=== PATIENT | female | born 1950 ===

== ENCOUNTER 2018-07-20 21:12 | Inpatient (IN) | payer MEDICARE, BC ==
[~2018-07-20] VITALS: Ht 162.6 cm; Wt 80.9 kg
[2018-07-20] MEDS ORDERED: PANT40TA4 PO (21:41)
[2018-07-20] MEDS ORDERED: POTA20PA40 PO (21:41)
[2018-07-20] MEDS ORDERED: CYAN10009 PO (21:41)
[2018-07-20] MEDS ORDERED: HYDROCORTISONE PO ×2 (21:41)
[2018-07-20] MEDS ORDERED: MAGN133T PO (21:41)
[2018-07-20] MEDS ORDERED: FOLI1TAB16 PO (21:41)
[2018-07-20] MEDS ORDERED: ESCI10TA PO (21:41)
[2018-07-20] MEDS ORDERED: SIRO0.5T3 PO (21:41)
[2018-07-20] MEDS ORDERED: OXYC5CAP18 PO (21:41)
[2018-07-20] MEDS ORDERED: ZOLP5TAB2 PO (21:41)
[2018-07-20] MEDS ORDERED: AMLO10TA7 PO (21:41)
[2018-07-20] MEDS ORDERED: POLY17PO4 PO (21:41)
[2018-07-20] MEDS ORDERED: DOCU100C36 PO (21:41)
[2018-07-20] MEDS ORDERED: BUDE3CAP15 PO (21:41)
[2018-07-20] MEDS ORDERED: SENN-168 PO (21:41)
[2018-07-20] MEDS ORDERED: SODI650T PO (21:41)
[2018-07-20] MEDS ORDERED: THIA100T13 PO (21:41)
[2018-07-20] MEDS ORDERED: LEUC5TAB PO (21:41)
[2018-07-20] MEDS ORDERED: METO50TA16 PO (21:41)
[2018-07-20] MEDS ORDERED: POSA100T PO (21:41)
[2018-07-20] MEDS ORDERED: MIRT15TA7 PO (21:41)
[2018-07-20 21:47] LABS: BASOPHILS # (AUTO) 0.1 K/uL (0.0-8.0); BASOPHILS % (AUTO) 0.9 % (0.0-2.0); EOSINOPHILS % (AUTO) 0.1 % (0.0-7.0); HEMATOCRIT 24.5 % (31.2-41.9); HEMOGLOBIN 8.4 g/dL (10.9-14.3); LYMPHOCYTES # (AUTO) 0.9 K/uL (20.0-40.0); LYMPHOCYTES % (AUTO) 16.4 % (20.5-51.5); MEAN CORPUSCULAR HEMOGLOBIN 34.3 uug (24.7-32.8); MEAN CORPUSCULAR HGB CONC 34 g/dL (32.3-35.6); MEAN CORPUSCULAR VOLUME 100.2 fL (75.5-95.3); MONOCYTES # (AUTO) 0.3 K/uL (2.0-10.0); MONOCYTES % (AUTO) 4.9 % (0.0-11.0); NEUTROPHILS # (AUTO) 4.5 K/uL (1.8-8.9); NEUTROPHILS % (AUTO) 77.7 % (38.5-71.5); PLATELET COUNT (AUTO) 50 K/uL (179-408); WHITE BLOOD COUNT (AUTO) 5.8 K/uL (3.8-11.8)
[2018-07-20 21:57] LABS: BILIRUBIN,DIRECT 0.2 mg/dL (0.0-0.2); BILIRUBIN,TOTAL 0.5 mg/dL (0.2-1.0); CREATININE 0.9 mg/dL (0.6-1.3); TOTAL PROTEIN, SERUM 5.3 g/dL (6.4-8.2)
[2018-07-20 21:58] LABS: POTASSIUM 2.6 mmol/L (3.5-5.1)
[2018-07-20 22:03] LABS: BAND % (MANUAL) 2 % (0-10); LYMPHOCYTES % (MANUAL) 16 % (20-40); MONOCYTES % (MANUAL) 2 % (2-10); NEUTROPHILS % (MANUAL) 80 % (42-75); RED BLOOD CELL COUNT(AUTO) 2.45 MIL/uL (3.63-4.92)
[2018-07-20] MEDS: POTASSIUM CHLORIDE 50 ML IV SCH ×2 (22:15→23:20)
[2018-07-20] MEDS ORDERED: POTASSIUM CHLORIDE 100 ML ONE (22:21)
[2018-07-20 23:15] LABS: *BILIRUBIN,URIN NEGATIVE (NEGATIVE); *BLOOD, URINE 2+ (NEGATIVE); *COLOR,URINE YELLOW (YELLOW); *KETONES,URINE NEGATIVE (NEGATIVE); *UROBILINOGEN,URINE 0.2 E.U./dl (NORMAL); LEUKOCYTE ESTERASE ,URINE TRACE (NEGATIVE); NITRITE, URINE NEGATIVE (NEGATIVE); UGLUCOSE NEGATIVE (NEGATIVE)
[2018-07-20 23:27] LABS: *CLARITY,URINE HAZY (CLEAR)
[2018-07-20 23:31] LABS: BACTERIA,URINE FEW /HPF (NONE SEEN)
[2018-07-20 23:32] LABS: MUCUS,URINE FEW /LPF (0-FEW); SQUAMOUS EPITHELIAL CELL,UR MANY /HPF (NONE SEEN)
[2018-07-21 00:01] VITALS: BP 143/79
[2018-07-21] MEDS ORDERED: MORPHINE SULFATE 4 MG/1 ML DISP.SYRIN IV PRN (00:45)
[2018-07-21] MEDS ORDERED: ONDANSETRON 4 MG/2 ML VIAL IV PRN (00:45)
[2018-07-21 04:00] VITALS: BP 135/83
[2018-07-21 06:00] LABS: EOSINOPHILS % (AUTO) 0.6 % (0.0-7.0); HEMATOCRIT 23.2 % (31.2-41.9); LYMPHOCYTES # (AUTO) 0.8 K/uL (20.0-40.0); LYMPHOCYTES % (AUTO) 17.3 % (20.5-51.5); MEAN CORPUSCULAR HEMOGLOBIN 34.4 uug (24.7-32.8); MEAN CORPUSCULAR HGB CONC 34 g/dL (32.3-35.6); MEAN CORPUSCULAR VOLUME 100.2 fL (75.5-95.3); MONOCYTES # (AUTO) 0.3 K/uL (2.0-10.0); MONOCYTES % (AUTO) 7.9 % (0.0-11.0); NEUTROPHILS # (AUTO) 3.2 K/uL (1.8-8.9); NEUTROPHILS % (AUTO) 73.2 % (38.5-71.5); WHITE BLOOD COUNT (AUTO) 4.4 K/uL (3.8-11.8)
[2018-07-21 06:01] LABS: RED BLOOD CELL COUNT(AUTO) 2.32 MIL/uL (3.63-4.92)
[2018-07-21 06:04] LABS: PLATELET COUNT (AUTO) 40 K/uL (179-408)
[2018-07-21 06:11] LABS: BILIRUBIN,TOTAL 0.6 mg/dL (0.2-1.0); CREATININE 0.7 mg/dL (0.6-1.3); MAGNESIUM 1.4 mg/dL (1.8-2.4); PHOSPHOROUS 2.6 mg/dL (2.5-4.9); TOTAL PROTEIN, SERUM 5.2 g/dL (6.4-8.2)
[2018-07-21 06:18] LABS: POTASSIUM 2.4 mmol/L (3.5-5.1)
[2018-07-21] MEDS: PANTOPRAZOLE SODIUM 40 MG TABLET.DR PO SCH (06:22)
[2018-07-21] MEDS: MAGNESIUM SULFATE/D5W 100 ML IV SCH ×4 (06:48→16:50)
[2018-07-21 07:32] LABS: LYMPHOCYTES % (MANUAL) 19 % (20-40); MONOCYTES % (MANUAL) 8 % (2-10); NEUTROPHILS % (MANUAL) 73 % (42-75)
[2018-07-21 09:00] VITALS: BP 132/80
[2018-07-21] MEDS: POTASSIUM CHLORIDE 10 MEQ/50 ML IV SCH ×4 (09:49→18:22)
[2018-07-21] MEDS ORDERED: LEUCOVORIN CALCIUM 5 MG PO SCH (11:45)
[2018-07-21] MEDS ORDERED: MIRALAX 17 GM POWD.PACK PO PRN (11:45)
[2018-07-21] MEDS ORDERED: POSACONAZOLE 100 MG PO SCH (11:45)
[2018-07-21] MEDS ORDERED: HYDROCORTISONE 25 MG PO SCH (11:45)
[2018-07-21] MEDS ORDERED: SIROLIMUS 0.5 MG PO SCH (11:45)
[2018-07-21] MEDS ORDERED: SENNOSIDES 1 TABLET PO PRN (11:45)
[2018-07-21] MEDS ORDERED: POTASSIUM CHLORIDE 20 MEQ TAB.PRT.SR PO ONE (12:00)
[2018-07-21] MEDS: CEFTRIAXONE 1 G in IV DEXTROSE 5% 50 ML IV SCH (12:36)
[2018-07-21] MEDS: FOLIC ACID 1 MG TABLET PO SCH (12:53)
[2018-07-21] MEDS: ESCITALOPRAM OXALATE 10 MG TABLET PO SCH (12:53)
[2018-07-21] MEDS: THIAMINE HCL 100 MG TABLET PO SCH (12:54)
[2018-07-21] MEDS: SODIUM BICARBONATE 650 MG TABLET PO SCH ×2 (13:10→17:00)
[2018-07-21 13:25] LABS: THYROID STIMULATING HORMONE 2.708 mIU/mL (0.358-3.740)
[2018-07-21 16:30] VITALS: BP 142/87
[2018-07-21 16:43] VITALS: BP 84/46
[2018-07-21] MEDS: DOCUSATE SODIUM 100 MG CAPSULE PO SCH (17:00)
[2018-07-21 20:00] VITALS: BP 146/85
[2018-07-21] MEDS: MIRTAZAPINE 15 MG TABLET PO SCH (20:41)
[2018-07-21] MEDS ORDERED: HYDROCORTISONE 10 MG TABLET PO SCH (21:00)
[2018-07-21] MEDS: ACETAMINOPHEN 325 MG TABLET PO PRN (22:26)
[2018-07-22] VITALS (12 sets, daily range): BP systolic 107–148; BP diastolic 52–88
[2018-07-22] MEDS ORDERED: DILTIAZEM HCL 25 MG IV IV ONE ×2 (03:30→05:15)
[2018-07-22 06:32] LABS: BILIRUBIN,TOTAL 0.8 mg/dL (0.2-1.0); CREATININE 0.7 mg/dL (0.6-1.3); MAGNESIUM 2.1 mg/dL (1.8-2.4); PHOSPHOROUS 2.6 mg/dL (2.5-4.9); POTASSIUM 3.3 mmol/L (3.5-5.1); TOTAL PROTEIN, SERUM 4.8 g/dL (6.4-8.2)
[2018-07-22 06:35] LABS: BASOPHILS % (AUTO) 0.7 % (0.0-2.0); EOSINOPHILS % (AUTO) 0.2 % (0.0-7.0); LYMPHOCYTES # (AUTO) 0.6 K/uL (20.0-40.0); LYMPHOCYTES % (AUTO) 13.2 % (20.5-51.5); MEAN CORPUSCULAR HEMOGLOBIN 34.3 uug (24.7-32.8); MEAN CORPUSCULAR HGB CONC 34 g/dL (32.3-35.6); MEAN CORPUSCULAR VOLUME 100.9 fL (75.5-95.3); MONOCYTES # (AUTO) 0.3 K/uL (2.0-10.0); MONOCYTES % (AUTO) 6.1 % (0.0-11.0); NEUTROPHILS # (AUTO) 3.6 K/uL (1.8-8.9); NEUTROPHILS % (AUTO) 79.8 % (38.5-71.5); WHITE BLOOD COUNT (AUTO) 4.5 K/uL (3.8-11.8)
[2018-07-22 06:40] LABS: RED BLOOD CELL COUNT(AUTO) 2.16 MIL/uL (3.63-4.92)
[2018-07-22] MEDS: PANTOPRAZOLE SODIUM 40 MG TABLET.DR PO SCH (06:42)
[2018-07-22 06:47] LABS: HEMATOCRIT 21.8 % (31.2-41.9); HEMOGLOBIN 7.4 g/dL (10.9-14.3)
[2018-07-22 06:48] LABS: PLATELET COUNT (AUTO) 32 K/uL (179-408)
[2018-07-22 08:24] LABS: BAND % (MANUAL) 7 % (0-10); LYMPHOCYTES % (MANUAL) 11 % (20-40); METAMYELOCYTES % 1 % (0-1); MONOCYTES % (MANUAL) 6 % (2-10); NEUTROPHILS % (MANUAL) 75 % (42-75)
[2018-07-22] MEDS: POTASSIUM CHLORIDE 20 MEQ POWDER PACKET PO SCH (08:30)
[2018-07-22] MEDS: SODIUM BICARBONATE 650 MG TABLET PO SCH ×3 (08:30→16:30)
[2018-07-22] MEDS: CYANOCOBALAMIN 1,000 MCG TABLET PO SCH (08:31)
[2018-07-22] MEDS: DOCUSATE SODIUM 100 MG CAPSULE PO SCH ×2 (08:31→16:30)
[2018-07-22] MEDS: FOLIC ACID 1 MG TABLET PO SCH (08:31)
[2018-07-22] MEDS: THIAMINE HCL 100 MG TABLET PO SCH (08:32)
[2018-07-22] MEDS: ESCITALOPRAM OXALATE 10 MG TABLET PO SCH (08:32)
[2018-07-22] MEDS ORDERED: HYDROCORTISONE PO SCH (09:00)
[2018-07-22] MEDS ORDERED: HYDROCORTISONE 10 MG TABLET PO SCH (09:00)
[2018-07-22] MEDS ORDERED: POTASSIUM CHLORIDE 20 MEQ TAB.PRT.SR PO ONE (10:45)
[2018-07-22] MEDS: BUDESONIDE 3 MG PO SCH (11:43)
[2018-07-22] MEDS: PROTEIN SUPPLEMENT (PROSTAT) 30 ML LIQUID PO SCH ×2 (11:43→16:31)
[2018-07-22] MEDS: CEFTRIAXONE 1 G in IV DEXTROSE 5% 50 ML IV SCH (11:44)
[2018-07-22] MEDS: CHLORHEXIDINE GLUCONATE 15 ML MOUTHWASH MM SCH ×2 (14:38→20:23)
[2018-07-22] MEDS: METOPROLOL TARTRATE 50 MG TABLET PO SCH ×2 (16:30→23:14)
[2018-07-22] MEDS: ENSURE CLEAR 240 ML LIQUID (MIX BERRY) PO SCH (16:31)
[2018-07-22] MEDS: MIRTAZAPINE 15 MG TABLET PO SCH (20:24)
[2018-07-22] MEDS: MUPIROCIN 2% OINT 22 GM TUBE NS SCH (20:24)
[2018-07-22] MEDS: ZOLPIDEM 5 MG TABLET PO PRN (21:05)
[2018-07-23] VITALS (14 sets, daily range): BP systolic 115–193; BP diastolic 61–92
[2018-07-23] MEDS: PANTOPRAZOLE SODIUM 40 MG TABLET.DR PO SCH (06:31)
[2018-07-23] MEDS: CLONIDINE HCL 0.1 MG TABLET PO PRN (06:43)
[2018-07-23 06:47] LABS: BILIRUBIN,TOTAL 0.6 mg/dL (0.2-1.0); CREATININE 0.6 mg/dL (0.6-1.3); MAGNESIUM 2.2 mg/dL (1.8-2.4); PHOSPHOROUS 2.6 mg/dL (2.5-4.9); POTASSIUM 3.6 mmol/L (3.5-5.1); TOTAL PROTEIN, SERUM 4.9 g/dL (6.4-8.2)
[2018-07-23 07:01] LABS: EOSINOPHILS % (AUTO) 0.4 % (0.0-7.0); HEMATOCRIT 25.9 % (31.2-41.9); HEMOGLOBIN 8.8 g/dL (10.9-14.3); LYMPHOCYTES # (AUTO) 0.7 K/uL (20.0-40.0); MEAN CORPUSCULAR VOLUME 95.8 fL (75.5-95.3); MONOCYTES # (AUTO) 0.3 K/uL (2.0-10.0); MONOCYTES % (AUTO) 7.3 % (0.0-11.0)
[2018-07-23 07:03] LABS: BASOPHILS % (AUTO) 0.4 % (0.0-2.0); LYMPHOCYTES % (AUTO) 15.9 % (20.5-51.5); MEAN CORPUSCULAR HEMOGLOBIN 32.7 uug (24.7-32.8); MEAN CORPUSCULAR HGB CONC 34 g/dL (32.3-35.6); NEUTROPHILS # (AUTO) 3.2 K/uL (1.8-8.9); WHITE BLOOD COUNT (AUTO) 4.2 K/uL (3.8-11.8)
[2018-07-23 07:14] LABS: PLATELET COUNT (AUTO) 33 K/uL (179-408)
[2018-07-23 07:33] LABS: BAND % (MANUAL) 6 % (0-10); LYMPHOCYTES % (MANUAL) 15 % (20-40); MONOCYTES % (MANUAL) 6 % (2-10); NEUTROPHILS % (MANUAL) 73 % (42-75)
[2018-07-23] MEDS ORDERED: SWABABLE VALVE TRANSFER SET EA MC ONE (07:34)
[2018-07-23] MEDS ORDERED: IOHEXOL 350 100 ML INFUS..BTL ONE (07:34)
[2018-07-23] MEDS ORDERED: IV NORMAL SALINE 250 ML IV ONE (07:34)
[2018-07-23] MEDS: ENSURE CLEAR 240 ML LIQUID (MIX BERRY) PO SCH ×2 (08:24→16:55)
[2018-07-23] MEDS: PROTEIN SUPPLEMENT (PROSTAT) 30 ML LIQUID PO SCH ×3 (08:25→16:54)
[2018-07-23] MEDS: CHLORHEXIDINE GLUCONATE 15 ML MOUTHWASH MM SCH ×2 (08:25→20:09)
[2018-07-23] MEDS: MUPIROCIN 2% OINT 22 GM TUBE NS SCH ×2 (08:26→20:10)
[2018-07-23] MEDS: CYANOCOBALAMIN 1,000 MCG TABLET PO SCH (08:26)
[2018-07-23] MEDS: THIAMINE HCL 100 MG TABLET PO SCH (08:27)
[2018-07-23] MEDS: ESCITALOPRAM OXALATE 10 MG TABLET PO SCH (08:27)
[2018-07-23] MEDS: POTASSIUM CHLORIDE 20 MEQ POWDER PACKET PO SCH (08:27)
[2018-07-23] MEDS: DOCUSATE SODIUM 100 MG CAPSULE PO SCH ×2 (08:27→16:53)
[2018-07-23] MEDS: METOPROLOL TARTRATE 50 MG TABLET PO SCH ×2 (08:29→20:09)
[2018-07-23] MEDS: FOLIC ACID 1 MG TABLET PO SCH (08:29)
[2018-07-23] MEDS: SODIUM BICARBONATE 650 MG TABLET PO SCH ×3 (08:30→16:53)
[2018-07-23] MEDS: HYDROCORTISONE 10 MG TABLET PO SCH (08:33)
[2018-07-23] MEDS: BUDESONIDE 3 MG PO SCH (08:34)
[2018-07-23] MEDS: DOCOSANOL 2 GM CREAM TP SCH ×4 (10:27→20:11)
[2018-07-23] MEDS: hydrALAZINE HCL 20 MG/1 ML VIAL IV PRN (11:11)
[2018-07-23] MEDS: CEFTRIAXONE 1 G in IV DEXTROSE 5% 50 ML IV SCH (12:47)
[2018-07-23] MEDS ORDERED: Z GUARD REMEDY PASTE 57 GM TUBE TOP PRN (14:15)
[2018-07-23] MEDS: ATORVASTATIN 20 MG TABLET PO SCH (20:08)
[2018-07-23] MEDS: MIRTAZAPINE 15 MG TABLET PO SCH (20:08)
[2018-07-23] MEDS: VALACYCLOVIR HCL 500 MG TABLET PO SCH (20:09)
[2018-07-23] MEDS: Z GUARD REMEDY PASTE 57 GM TUBE TOP SCH (20:12)
[2018-07-23 22:16] LABS: *OCCULT BLOOD STOOL NEGATIVE (NEGATIVE)
[2018-07-24] VITALS (7 sets, daily range): BP systolic 123–159; BP diastolic 60–88
[2018-07-24] MEDS: CLONIDINE HCL 0.1 MG TABLET PO PRN (05:39)
[2018-07-24] MEDS: DOCOSANOL 2 GM CREAM TP SCH ×5 (05:41→20:30)
[2018-07-24] MEDS: PANTOPRAZOLE SODIUM 40 MG TABLET.DR PO SCH (06:08)
[2018-07-24 07:03] LABS: BASOPHILS % (AUTO) 0.6 % (0.0-2.0); EOSINOPHILS % (AUTO) 0.9 % (0.0-7.0); HEMOGLOBIN 9.2 g/dL (10.9-14.3); LYMPHOCYTES # (AUTO) 0.5 K/uL (20.0-40.0); LYMPHOCYTES % (AUTO) 11.5 % (20.5-51.5); MEAN CORPUSCULAR HEMOGLOBIN 32.8 uug (24.7-32.8); MEAN CORPUSCULAR HGB CONC 34 g/dL (32.3-35.6); MEAN CORPUSCULAR VOLUME 95.9 fL (75.5-95.3); MONOCYTES # (AUTO) 0.3 K/uL (2.0-10.0); MONOCYTES % (AUTO) 6.9 % (0.0-11.0); NEUTROPHILS # (AUTO) 3.5 K/uL (1.8-8.9); NEUTROPHILS % (AUTO) 80.1 % (38.5-71.5); PLATELET COUNT (AUTO) 75 K/uL (179-408); RED BLOOD CELL COUNT(AUTO) 2.82 MIL/uL (3.63-4.92); WHITE BLOOD COUNT (AUTO) 4.4 K/uL (3.8-11.8)
[2018-07-24 07:19] LABS: BILIRUBIN,TOTAL 0.5 mg/dL (0.2-1.0); CREATININE 0.5 mg/dL (0.6-1.3); MAGNESIUM 1.9 mg/dL (1.8-2.4); PHOSPHOROUS 3.7 mg/dL (2.5-4.9); POTASSIUM 3.5 mmol/L (3.5-5.1); TOTAL PROTEIN, SERUM 4.7 g/dL (6.4-8.2)
[2018-07-24] MEDS: SODIUM BICARBONATE 650 MG TABLET PO SCH ×3 (09:24→16:42)
[2018-07-24] MEDS: VALACYCLOVIR HCL 500 MG TABLET PO SCH (09:24)
[2018-07-24] MEDS: HYDROCORTISONE 10 MG TABLET PO SCH (09:24)
[2018-07-24] MEDS: FOLIC ACID 1 MG TABLET PO SCH (09:24)
[2018-07-24] MEDS: DOCUSATE SODIUM 100 MG CAPSULE PO SCH ×2 (09:25→16:41)
[2018-07-24] MEDS: METOPROLOL TARTRATE 50 MG TABLET PO SCH ×2 (09:25→20:29)
[2018-07-24] MEDS: CYANOCOBALAMIN 1,000 MCG TABLET PO SCH (09:25)
[2018-07-24] MEDS: POTASSIUM CHLORIDE 20 MEQ TAB.PRT.SR PO SCH (09:25)
[2018-07-24] MEDS: THIAMINE HCL 100 MG TABLET PO SCH (09:25)
[2018-07-24] MEDS: ESCITALOPRAM OXALATE 10 MG TABLET PO SCH (09:25)
[2018-07-24] MEDS: Z GUARD REMEDY PASTE 57 GM TUBE TOP SCH ×2 (09:26→20:32)
[2018-07-24 09:32] LABS: LYMPHOCYTES % (MANUAL) 12 % (20-40); MONOCYTES % (MANUAL) 8 % (2-10); NEUTROPHILS % (MANUAL) 80 % (42-75)
[2018-07-24] MEDS: ENSURE CLEAR 240 ML LIQUID (MIX BERRY) PO SCH ×2 (09:33→16:41)
[2018-07-24] MEDS: PROTEIN SUPPLEMENT (PROSTAT) 30 ML LIQUID PO SCH ×3 (09:33→16:41)
[2018-07-24] MEDS: MUPIROCIN 2% OINT 22 GM TUBE NS SCH ×2 (09:35→20:29)
[2018-07-24] MEDS: CHLORHEXIDINE GLUCONATE 15 ML MOUTHWASH MM SCH ×2 (09:35→20:29)
[2018-07-24] MEDS: BUDESONIDE 3 MG PO SCH (09:36)
[2018-07-24] MEDS: ACETAMINOPHEN 325 MG TABLET PO PRN (11:18)
[2018-07-24] MEDS: CEFTRIAXONE 1 G in IV DEXTROSE 5% 50 ML IV SCH (13:32)
[2018-07-24] MEDS: MIRTAZAPINE 15 MG TABLET PO SCH (20:28)
[2018-07-24] MEDS: ATORVASTATIN 20 MG TABLET PO SCH (20:28)
[2018-07-25 03:25] VITALS: BP 160/96
[2018-07-25] MEDS: CLONIDINE HCL 0.1 MG TABLET PO PRN ×2 (04:33→16:39)
[2018-07-25] MEDS: DOCOSANOL 2 GM CREAM TP SCH ×5 (06:00→20:28)
[2018-07-25] MEDS: ACETAMINOPHEN 325 MG TABLET PO PRN (06:01)
[2018-07-25] MEDS: PANTOPRAZOLE SODIUM 40 MG TABLET.DR PO SCH (06:01)
[2018-07-25] MEDS: hydrALAZINE HCL 20 MG/1 ML VIAL IV PRN (06:22)
[2018-07-25 06:44] LABS: BASOPHILS # (AUTO) 0.1 K/uL (0.0-8.0); BASOPHILS % (AUTO) 1.1 % (0.0-2.0); EOSINOPHILS % (AUTO) 0.7 % (0.0-7.0); HEMATOCRIT 30.5 % (31.2-41.9); HEMOGLOBIN 10.4 g/dL (10.9-14.3); LYMPHOCYTES # (AUTO) 0.5 K/uL (20.0-40.0); LYMPHOCYTES % (AUTO) 9.7 % (20.5-51.5); MEAN CORPUSCULAR HEMOGLOBIN 32.8 uug (24.7-32.8); MEAN CORPUSCULAR HGB CONC 34 g/dL (32.3-35.6); MEAN CORPUSCULAR VOLUME 96.1 fL (75.5-95.3); MONOCYTES # (AUTO) 0.3 K/uL (2.0-10.0); NEUTROPHILS # (AUTO) 4.2 K/uL (1.8-8.9); NEUTROPHILS % (AUTO) 82.5 % (38.5-71.5); PLATELET COUNT (AUTO) 69 K/uL (179-408); RED BLOOD CELL COUNT(AUTO) 3.18 MIL/uL (3.63-4.92)
[2018-07-25 06:48] LABS: CREATININE 0.6 mg/dL (0.6-1.3); POTASSIUM 3.4 mmol/L (3.5-5.1)
[2018-07-25 07:30] LABS: FERRITIN 3778 ng/mL (8-252)
[2018-07-25 07:53] LABS: IRON, SERUM 44 ug/dL (50-175)
[2018-07-25] MEDS: HYDROCORTISONE 10 MG TABLET PO SCH (08:03)
[2018-07-25] MEDS: DOCUSATE SODIUM 100 MG CAPSULE PO SCH ×2 (08:03→16:39)
[2018-07-25] MEDS: CHLORHEXIDINE GLUCONATE 15 ML MOUTHWASH MM SCH ×2 (08:03→20:27)
[2018-07-25] MEDS: SODIUM BICARBONATE 650 MG TABLET PO SCH ×3 (08:03→16:41)
[2018-07-25] MEDS: FOLIC ACID 1 MG TABLET PO SCH (08:03)
[2018-07-25] MEDS: METOPROLOL TARTRATE 50 MG TABLET PO SCH ×2 (08:03→20:28)
[2018-07-25] MEDS: BUDESONIDE 3 MG PO SCH (08:03)
[2018-07-25] MEDS: POTASSIUM CHLORIDE 20 MEQ TAB.PRT.SR PO SCH (08:03)
[2018-07-25] MEDS: Z GUARD REMEDY PASTE 57 GM TUBE TOP SCH ×2 (08:04→20:36)
[2018-07-25] MEDS: CYANOCOBALAMIN 1,000 MCG TABLET PO SCH (08:04)
[2018-07-25] MEDS: ESCITALOPRAM OXALATE 10 MG TABLET PO SCH (08:04)
[2018-07-25] MEDS: THIAMINE HCL 100 MG TABLET PO SCH (08:04)
[2018-07-25] MEDS: MUPIROCIN 2% OINT 22 GM TUBE NS SCH ×2 (08:04→20:28)
[2018-07-25] MEDS: PROTEIN SUPPLEMENT (PROSTAT) 30 ML LIQUID PO SCH ×3 (08:05→16:39)
[2018-07-25] MEDS: ENSURE CLEAR 240 ML LIQUID (MIX BERRY) PO SCH ×2 (08:05→16:40)
[2018-07-25 11:01] VITALS: BP 157/70
[2018-07-25] MEDS ORDERED: POTASSIUM CHLORIDE 20 MEQ TAB.PRT.SR PO ONE (14:45)
[2018-07-25 16:27] VITALS: BP 169/88
[2018-07-25 17:50] LABS: *BILIRUBIN,URIN 1+ (NEGATIVE); *BLOOD, URINE Trace-lysed (NEGATIVE); *COLOR,URINE AMBER (YELLOW); *KETONES,URINE TRACE (NEGATIVE); LEUKOCYTE ESTERASE ,URINE NEGATIVE (NEGATIVE); NITRITE, URINE NEGATIVE (NEGATIVE); PH,URINE 7.5 (5.0-8.0); UGLUCOSE NEGATIVE (NEGATIVE)
[2018-07-25 18:11] LABS: *CLARITY,URINE CLOUDY (CLEAR)
[2018-07-25 18:12] LABS: BACTERIA,URINE MANY /HPF (NONE SEEN)
[2018-07-25 18:13] LABS: MUCUS,URINE MODERATE /LPF (0-FEW); SQUAMOUS EPITHELIAL CELL,UR MODERATE /HPF (NONE SEEN); TRANSITIONAL EPI CELLS,URINE MODERATE /LPF (NONE SEEN)
[2018-07-25 19:28] VITALS: BP 134/80
[2018-07-25] MEDS: MIRTAZAPINE 15 MG TABLET PO SCH (20:27)
[2018-07-25] MEDS: ATORVASTATIN 20 MG TABLET PO SCH (20:27)
[2018-07-25] MEDS: ZOLPIDEM 5 MG TABLET PO PRN (20:34)
[2018-07-26 03:43] VITALS: BP 149/75
[2018-07-26] MEDS: DOCOSANOL 2 GM CREAM TP SCH ×5 (05:23→20:54)
[2018-07-26] MEDS: PANTOPRAZOLE SODIUM 40 MG TABLET.DR PO SCH (06:09)
[2018-07-26 06:44] LABS: CREATININE 0.6 mg/dL (0.6-1.3); POTASSIUM 3.5 mmol/L (3.5-5.1)
[2018-07-26 07:11] LABS: BASOPHILS % (AUTO) 0.3 % (0.0-2.0); EOSINOPHILS # (AUTO) 0.1 K/uL (0.0-0.7); EOSINOPHILS % (AUTO) 0.9 % (0.0-7.0); HEMATOCRIT 26.3 % (31.2-41.9); LYMPHOCYTES # (AUTO) 0.8 K/uL (20.0-40.0); LYMPHOCYTES % (AUTO) 13.3 % (20.5-51.5); MEAN CORPUSCULAR HEMOGLOBIN 33.2 uug (24.7-32.8); MEAN CORPUSCULAR HGB CONC 34 g/dL (32.3-35.6); MONOCYTES # (AUTO) 0.3 K/uL (2.0-10.0); MONOCYTES % (AUTO) 5.5 % (0.0-11.0); NEUTROPHILS # (AUTO) 5.1 K/uL (1.8-8.9); RED BLOOD CELL COUNT(AUTO) 2.71 MIL/uL (3.63-4.92); WHITE BLOOD COUNT (AUTO) 6.3 K/uL (3.8-11.8)
[2018-07-26 07:16] LABS: PLATELET COUNT (AUTO) 45 K/uL (179-408)
[2018-07-26 07:38] LABS: BAND % (MANUAL) 1 % (0-10); LYMPHOCYTES % (MANUAL) 7 % (20-40); MONOCYTES % (MANUAL) 6 % (2-10); NEUTROPHILS % (MANUAL) 86 % (42-75)
[2018-07-26] MEDS: ENSURE CLEAR 240 ML LIQUID (MIX BERRY) PO SCH ×2 (08:41→16:12)
[2018-07-26] MEDS: CHLORHEXIDINE GLUCONATE 15 ML MOUTHWASH MM SCH ×2 (08:41→20:49)
[2018-07-26] MEDS: PROTEIN SUPPLEMENT (PROSTAT) 30 ML LIQUID PO SCH ×3 (08:41→16:12)
[2018-07-26] MEDS: HYDROCORTISONE 10 MG TABLET PO SCH (08:43)
[2018-07-26] MEDS: DOCUSATE SODIUM 100 MG CAPSULE PO SCH ×2 (08:43→16:11)
[2018-07-26] MEDS: BUDESONIDE 3 MG PO SCH (08:43)
[2018-07-26] MEDS: FOLIC ACID 1 MG TABLET PO SCH (08:43)
[2018-07-26] MEDS: THIAMINE HCL 100 MG TABLET PO SCH (08:44)
[2018-07-26] MEDS: POTASSIUM CHLORIDE 20 MEQ TAB.PRT.SR PO SCH (08:44)
[2018-07-26] MEDS: SODIUM BICARBONATE 650 MG TABLET PO SCH ×3 (08:44→16:11)
[2018-07-26] MEDS: CYANOCOBALAMIN 1,000 MCG TABLET PO SCH (08:44)
[2018-07-26] MEDS: ESCITALOPRAM OXALATE 10 MG TABLET PO SCH (08:44)
[2018-07-26] MEDS: METOPROLOL TARTRATE 50 MG TABLET PO SCH ×2 (08:45→20:47)
[2018-07-26] MEDS: MUPIROCIN 2% OINT 22 GM TUBE NS SCH ×2 (08:53→20:49)
[2018-07-26] MEDS: Z GUARD REMEDY PASTE 57 GM TUBE TOP SCH ×2 (09:14→20:52)
[2018-07-26] MEDS ORDERED: CEFTRIAXONE 1 G in IV DEXTROSE 5% 50 ML IV SCH (11:00)
[2018-07-26 11:53] VITALS: BP 142/77
[2018-07-26] MEDS ORDERED: METO50TA16 PO (11:59)
[2018-07-26] MEDS ORDERED: POTA20TA10 PO (11:59)
[2018-07-26] MEDS ORDERED: PROT30LI PO (11:59)
[2018-07-26] MEDS ORDERED: POSACONAZOLE PO (11:59)
[2018-07-26] MEDS ORDERED: ESCI10TA PO (11:59)
[2018-07-26] MEDS ORDERED: ACET325S8 PO (11:59)
[2018-07-26] MEDS ORDERED: ACET325T53 PO (11:59)
[2018-07-26] MEDS ORDERED: HYDR10TA PO (11:59)
[2018-07-26] MEDS ORDERED: ONDA4VIA23 IV (11:59)
[2018-07-26] MEDS ORDERED: DOCO2CRE TP (11:59)
[2018-07-26] MEDS ORDERED: POLY17PO4 PO (11:59)
[2018-07-26] MEDS ORDERED: CHLO473M2 MM (11:59)
[2018-07-26] MEDS ORDERED: HYDR20VI4 IV (11:59)
[2018-07-26] MEDS ORDERED: CLON0.1T14 PO (11:59)
[2018-07-26] MEDS ORDERED: FOLI1TAB16 PO (11:59)
[2018-07-26] MEDS ORDERED: ATOR20TA PO (11:59)
[2018-07-26] MEDS ORDERED: MENT71OI TOP ×2 (11:59)
[2018-07-26] MEDS ORDERED: ZOLP5TAB8 PO (11:59)
[2018-07-26] MEDS ORDERED: Morphine Sulfate Inj IV (11:59)
[2018-07-26] MEDS ORDERED: PANT40TA2 PO (11:59)
[2018-07-26] MEDS ORDERED: BUDE3CAP15 PO (11:59)
[2018-07-26] MEDS ORDERED: THIA100T13 PO (11:59)
[2018-07-26] MEDS ORDERED: SENN-168 PO (11:59)
[2018-07-26] MEDS ORDERED: SODI650T PO (11:59)
[2018-07-26] MEDS ORDERED: DOCU100C36 PO (11:59)
[2018-07-26] MEDS ORDERED: MUPI22OI2 NS (11:59)
[2018-07-26] MEDS ORDERED: MIRT15TA7 PO (11:59)
[2018-07-26] MEDS ORDERED: CYAN10009 PO (11:59)
[2018-07-26] MEDS ORDERED: LACT296L PO (11:59)
[2018-07-26] MEDS ORDERED: SIROLIMUS PO (11:59)
[2018-07-26] MEDS: VALACYCLOVIR HCL 500 MG TABLET PO SCH ×2 (13:48→20:52)
[2018-07-26 16:06] VITALS: BP 154/84
[2018-07-26] MEDS: CLONIDINE HCL 0.1 MG TABLET PO PRN (16:11)
[2018-07-26] MEDS: ATORVASTATIN 20 MG TABLET PO SCH (20:47)
[2018-07-26] MEDS: ACETAMINOPHEN 325 MG TABLET PO PRN (20:47)
[2018-07-26] MEDS: MIRTAZAPINE 15 MG TABLET PO SCH (20:48)
[2018-07-26 21:37] VITALS: BP 134/89
[2018-07-26] MEDS: ZOLPIDEM 5 MG TABLET PO PRN (22:00)
[2018-07-27] VITALS (8 sets, daily range): BP systolic 136–170; BP diastolic 58–85
[2018-07-27] MEDS: DOCOSANOL 2 GM CREAM TP SCH ×5 (06:33→20:25)
[2018-07-27] MEDS: PANTOPRAZOLE SODIUM 40 MG TABLET.DR PO SCH (06:36)
[2018-07-27 06:59] LABS: LYMPHOCYTES # (AUTO) 0.7 K/uL (20.0-40.0); MONOCYTES # (AUTO) 0.3 K/uL (2.0-10.0); NEUTROPHILS # (AUTO) 3.2 K/uL (1.8-8.9); NEUTROPHILS % (AUTO) 76.6 % (38.5-71.5); WHITE BLOOD COUNT (AUTO) 4.2 K/uL (3.8-11.8)
[2018-07-27 07:02] LABS: BASOPHILS % (AUTO) 0.4 % (0.0-2.0); EOSINOPHILS % (AUTO) 0.8 % (0.0-7.0); HEMATOCRIT 24.7 % (31.2-41.9); HEMOGLOBIN 8.3 g/dL (10.9-14.3); LYMPHOCYTES % (AUTO) 15.7 % (20.5-51.5); MEAN CORPUSCULAR HEMOGLOBIN 32.7 uug (24.7-32.8); MEAN CORPUSCULAR HGB CONC 34 g/dL (32.3-35.6); MEAN CORPUSCULAR VOLUME 97.7 fL (75.5-95.3); MONOCYTES % (AUTO) 6.5 % (0.0-11.0); RED BLOOD CELL COUNT(AUTO) 2.53 MIL/uL (3.63-4.92)
[2018-07-27 07:13] LABS: CREATININE 0.5 mg/dL (0.6-1.3); POTASSIUM 3.5 mmol/L (3.5-5.1)
[2018-07-27 07:19] LABS: PLATELET COUNT (AUTO) 42 K/uL (179-408)
[2018-07-27 08:17] LABS: BAND % (MANUAL) 4 % (0-10); LYMPHOCYTES % (MANUAL) 14 % (20-40); MONOCYTES % (MANUAL) 4 % (2-10); NEUTROPHILS % (MANUAL) 76 % (42-75)
[2018-07-27] MEDS: DOCUSATE SODIUM 100 MG CAPSULE PO SCH ×2 (09:00→17:00)
[2018-07-27] MEDS: CHLORHEXIDINE GLUCONATE 15 ML MOUTHWASH MM SCH ×2 (09:19→20:17)
[2018-07-27] MEDS: BUDESONIDE 3 MG PO SCH (09:20)
[2018-07-27] MEDS: HYDROCORTISONE 10 MG TABLET PO SCH (09:20)
[2018-07-27] MEDS: VALACYCLOVIR HCL 500 MG TABLET PO SCH ×2 (09:20→20:17)
[2018-07-27] MEDS: FOLIC ACID 1 MG TABLET PO SCH (09:21)
[2018-07-27] MEDS: ESCITALOPRAM OXALATE 10 MG TABLET PO SCH (09:21)
[2018-07-27] MEDS: CYANOCOBALAMIN 1,000 MCG TABLET PO SCH (09:21)
[2018-07-27] MEDS: THIAMINE HCL 100 MG TABLET PO SCH (09:21)
[2018-07-27] MEDS: POTASSIUM CHLORIDE 20 MEQ TAB.PRT.SR PO SCH (09:21)
[2018-07-27] MEDS: METOPROLOL TARTRATE 50 MG TABLET PO SCH ×2 (09:22→20:19)
[2018-07-27] MEDS: MUPIROCIN 2% OINT 22 GM TUBE NS SCH (09:23)
[2018-07-27] MEDS: PROTEIN SUPPLEMENT (PROSTAT) 30 ML LIQUID PO SCH ×3 (09:23→17:00)
[2018-07-27] MEDS: LEUCOVORIN PO SCH (09:27)
[2018-07-27] MEDS: SODIUM BICARBONATE 650 MG TABLET PO SCH ×3 (09:27→17:15)
[2018-07-27] MEDS: Z GUARD REMEDY PASTE 57 GM TUBE TOP SCH ×2 (09:32→20:20)
[2018-07-27] MEDS: ENSURE CLEAR 240 ML LIQUID (MIX BERRY) PO SCH ×2 (09:41→17:00)
[2018-07-27] MEDS: MIRTAZAPINE 15 MG TABLET PO SCH (20:18)
[2018-07-27] MEDS: ATORVASTATIN 20 MG TABLET PO SCH (20:18)
[2018-07-27] MEDS: ZOLPIDEM 5 MG TABLET PO PRN (20:58)
[2018-07-28 04:55] VITALS: BP 175/92
[2018-07-28] MEDS: hydrALAZINE HCL 20 MG/1 ML VIAL IV PRN (04:56)
[2018-07-28] MEDS: PANTOPRAZOLE SODIUM 40 MG TABLET.DR PO SCH (06:09)
[2018-07-28] MEDS: DOCOSANOL 2 GM CREAM TP SCH ×5 (06:09→20:13)
[2018-07-28 07:36] LABS: CREATININE 0.5 mg/dL (0.6-1.3); POTASSIUM 3.2 mmol/L (3.5-5.1)
[2018-07-28 07:40] LABS: BASOPHILS % (AUTO) 0.9 % (0.0-2.0); EOSINOPHILS % (AUTO) 0.7 % (0.0-7.0); HEMATOCRIT 25.7 % (31.2-41.9); HEMOGLOBIN 8.6 g/dL (10.9-14.3); LYMPHOCYTES # (AUTO) 0.7 K/uL (20.0-40.0); LYMPHOCYTES % (AUTO) 15.3 % (20.5-51.5); MEAN CORPUSCULAR HEMOGLOBIN 32.6 uug (24.7-32.8); MEAN CORPUSCULAR HGB CONC 34 g/dL (32.3-35.6); MONOCYTES # (AUTO) 0.4 K/uL (2.0-10.0); MONOCYTES % (AUTO) 7.5 % (0.0-11.0); NEUTROPHILS # (AUTO) 3.6 K/uL (1.8-8.9); NEUTROPHILS % (AUTO) 75.6 % (38.5-71.5); PLATELET COUNT (AUTO) 81 K/uL (179-408); RED BLOOD CELL COUNT(AUTO) 2.65 MIL/uL (3.63-4.92); WHITE BLOOD COUNT (AUTO) 4.8 K/uL (3.8-11.8)
[2018-07-28] MEDS: ENSURE CLEAR 240 ML LIQUID (MIX BERRY) PO SCH ×2 (08:00→17:00)
[2018-07-28] MEDS ORDERED: POTASSIUM CHLORIDE 20 MEQ TAB.PRT.SR PO ONE (08:00)
[2018-07-28] MEDS: Z GUARD REMEDY PASTE 57 GM TUBE TOP SCH ×2 (09:00→20:13)
[2018-07-28] MEDS: ESCITALOPRAM OXALATE 10 MG TABLET PO SCH (09:25)
[2018-07-28] MEDS: POTASSIUM CHLORIDE 20 MEQ TAB.PRT.SR PO SCH (09:26)
[2018-07-28] MEDS: CYANOCOBALAMIN 1,000 MCG TABLET PO SCH (09:26)
[2018-07-28] MEDS: DOCUSATE SODIUM 100 MG CAPSULE PO SCH ×2 (09:26→18:32)
[2018-07-28] MEDS: THIAMINE HCL 100 MG TABLET PO SCH (09:26)
[2018-07-28] MEDS: FOLIC ACID 1 MG TABLET PO SCH (09:26)
[2018-07-28] MEDS: METOPROLOL TARTRATE 50 MG TABLET PO SCH ×2 (09:27→20:13)
[2018-07-28] MEDS: LEUCOVORIN PO SCH (09:28)
[2018-07-28] MEDS: SODIUM BICARBONATE 650 MG TABLET PO SCH ×3 (09:29→18:32)
[2018-07-28] MEDS: VALACYCLOVIR HCL 500 MG TABLET PO SCH (09:29)
[2018-07-28] MEDS: BUDESONIDE 3 MG PO SCH (09:30)
[2018-07-28] MEDS: HYDROCORTISONE 10 MG TABLET PO SCH (09:30)
[2018-07-28] MEDS: CHLORHEXIDINE GLUCONATE 15 ML MOUTHWASH MM SCH ×2 (09:31→20:13)
[2018-07-28] MEDS: PROTEIN SUPPLEMENT (PROSTAT) 30 ML LIQUID PO SCH ×3 (09:31→17:00)
[2018-07-28 10:50] LABS: BAND % (MANUAL) 12 % (0-10); LYMPHOCYTES % (MANUAL) 14 % (20-40); MONOCYTES % (MANUAL) 6 % (2-10); NEUTROPHILS % (MANUAL) 68 % (42-75)
[2018-07-28 11:15] VITALS: BP 139/78
[2018-07-28 15:36] VITALS: BP 153/81
[2018-07-28] MEDS: MIRTAZAPINE 15 MG TABLET PO SCH (20:13)
[2018-07-28] MEDS: ATORVASTATIN 20 MG TABLET PO SCH (20:13)
[2018-07-28 20:56] VITALS: BP 164/81
[2018-07-28] MEDS: ZOLPIDEM 5 MG TABLET PO PRN (21:35)
[2018-07-29 04:35] VITALS: BP 163/87
[2018-07-29] MEDS: CLONIDINE HCL 0.1 MG TABLET PO PRN (05:41)
[2018-07-29] MEDS: DOCOSANOL 2 GM CREAM TP SCH ×5 (05:43→20:11)
[2018-07-29] MEDS: PANTOPRAZOLE SODIUM 40 MG TABLET.DR PO SCH (06:00)
[2018-07-29 06:38] LABS: CREATININE 0.6 mg/dL (0.6-1.3); POTASSIUM 3.7 mmol/L (3.5-5.1)
[2018-07-29 06:47] LABS: HEMATOCRIT 23.7 % (31.2-41.9); LYMPHOCYTES # (AUTO) 0.9 K/uL (20.0-40.0); NEUTROPHILS # (AUTO) 3.6 K/uL (1.8-8.9); WHITE BLOOD COUNT (AUTO) 4.9 K/uL (3.8-11.8)
[2018-07-29 07:09] LABS: BASOPHILS % (AUTO) 0.8 % (0.0-2.0); EOSINOPHILS % (AUTO) 0.6 % (0.0-7.0); HEMOGLOBIN 7.9 g/dL (10.9-14.3); LYMPHOCYTES % (AUTO) 17.5 % (20.5-51.5); MEAN CORPUSCULAR HEMOGLOBIN 32.6 uug (24.7-32.8); MEAN CORPUSCULAR HGB CONC 33 g/dL (32.3-35.6); MEAN CORPUSCULAR VOLUME 97.5 fL (75.5-95.3); MONOCYTES # (AUTO) 0.3 K/uL (2.0-10.0); MONOCYTES % (AUTO) 7.2 % (0.0-11.0); NEUTROPHILS % (AUTO) 73.9 % (38.5-71.5)
[2018-07-29 07:27] LABS: RED BLOOD CELL COUNT(AUTO) 2.43 MIL/uL (3.63-4.92)
[2018-07-29 07:28] LABS: PLATELET COUNT (AUTO) 58 K/uL (179-408)
[2018-07-29] MEDS: ENSURE CLEAR 240 ML LIQUID (MIX BERRY) PO SCH ×2 (08:00→17:00)
[2018-07-29 08:23] LABS: EOSINOPHILS % (MANUAL) 1 % (0-8); LYMPHOCYTES % (MANUAL) 17 % (20-40); METAMYELOCYTES % 1 % (0-1); MONOCYTES % (MANUAL) 9 % (2-10); MYELOCYTES % 4 % (0-0); NEUTROPHILS % (MANUAL) 68 % (42-75)
[2018-07-29] MEDS: CYANOCOBALAMIN 1,000 MCG TABLET PO SCH (08:23)
[2018-07-29] MEDS: ESCITALOPRAM OXALATE 10 MG TABLET PO SCH (08:23)
[2018-07-29] MEDS: THIAMINE HCL 100 MG TABLET PO SCH (08:28)
[2018-07-29] MEDS: POTASSIUM CHLORIDE 20 MEQ TAB.PRT.SR PO SCH (08:28)
[2018-07-29] MEDS: FOLIC ACID 1 MG TABLET PO SCH (08:29)
[2018-07-29] MEDS: SODIUM BICARBONATE 650 MG TABLET PO SCH ×3 (08:30→16:43)
[2018-07-29] MEDS: BUDESONIDE 3 MG PO SCH (08:30)
[2018-07-29] MEDS: CHLORHEXIDINE GLUCONATE 15 ML MOUTHWASH MM SCH ×2 (08:30→20:08)
[2018-07-29] MEDS: Z GUARD REMEDY PASTE 57 GM TUBE TOP SCH ×2 (08:31→20:10)
[2018-07-29] MEDS: HYDROCORTISONE 10 MG TABLET PO SCH (08:32)
[2018-07-29] MEDS: METOPROLOL TARTRATE 50 MG TABLET PO SCH ×2 (08:33→20:09)
[2018-07-29] MEDS: DOCUSATE SODIUM 100 MG CAPSULE PO SCH ×2 (09:00→16:25)
[2018-07-29] MEDS: PROTEIN SUPPLEMENT (PROSTAT) 30 ML LIQUID PO SCH ×3 (09:16→16:29)
[2018-07-29 11:22] VITALS: BP 141/72
[2018-07-29 15:02] VITALS: BP 127/72
[2018-07-29 19:52] VITALS: BP 166/84
[2018-07-29] MEDS: ATORVASTATIN 20 MG TABLET PO SCH (20:09)
[2018-07-29] MEDS: MIRTAZAPINE 15 MG TABLET PO SCH (20:09)
[2018-07-29] MEDS: ACETAMINOPHEN 325 MG TABLET PO PRN (20:09)
[2018-07-29] MEDS: ZOLPIDEM 5 MG TABLET PO PRN (20:10)
[2018-07-30] MEDS: PANTOPRAZOLE SODIUM 40 MG TABLET.DR PO SCH (05:39)
[2018-07-30] MEDS: DOCOSANOL 2 GM CREAM TP SCH ×2 (05:40→09:07)
[2018-07-30 06:15] VITALS: BP 180/76
[2018-07-30] MEDS: ENSURE CLEAR 240 ML LIQUID (MIX BERRY) PO SCH ×2 (08:00→17:00)
[2018-07-30] MEDS: POTASSIUM CHLORIDE 20 MEQ TAB.PRT.SR PO SCH (08:23)
[2018-07-30] MEDS: THIAMINE HCL 100 MG TABLET PO SCH (08:23)
[2018-07-30] MEDS: FOLIC ACID 1 MG TABLET PO SCH (08:23)
[2018-07-30] MEDS: CYANOCOBALAMIN 1,000 MCG TABLET PO SCH (08:23)
[2018-07-30] MEDS: ESCITALOPRAM OXALATE 10 MG TABLET PO SCH (08:23)
[2018-07-30] MEDS: SODIUM BICARBONATE 650 MG TABLET PO SCH ×3 (08:24→16:24)
[2018-07-30] MEDS: CHLORHEXIDINE GLUCONATE 15 ML MOUTHWASH MM SCH ×2 (08:25→20:02)
[2018-07-30] MEDS: HYDROCORTISONE 10 MG TABLET PO SCH (08:25)
[2018-07-30] MEDS: METOPROLOL TARTRATE 50 MG TABLET PO SCH ×2 (08:26→20:01)
[2018-07-30] MEDS: Z GUARD REMEDY PASTE 57 GM TUBE TOP SCH ×2 (08:31→20:04)
[2018-07-30] MEDS: DOCUSATE SODIUM 100 MG CAPSULE PO SCH ×2 (08:45→17:00)
[2018-07-30] MEDS: PROTEIN SUPPLEMENT (PROSTAT) 30 ML LIQUID PO SCH ×3 (09:05→17:00)
[2018-07-30] MEDS: BUDESONIDE 3 MG PO SCH (09:05)
[2018-07-30 11:19] VITALS: BP 150/72
[2018-07-30 11:56] LABS: BILIRUBIN,DIRECT 0.7 mg/dL (0.0-0.2); BILIRUBIN,TOTAL 1.1 mg/dL (0.2-1.0); TOTAL PROTEIN, SERUM 4.7 g/dL (6.4-8.2)
[2018-07-30 15:14] VITALS: BP 140/80
[2018-07-30] MEDS: ATORVASTATIN 20 MG TABLET PO SCH (20:01)
[2018-07-30] MEDS: MIRTAZAPINE 15 MG TABLET PO SCH (20:01)
[2018-07-30] MEDS ORDERED: CLONIDINE-TTS 1 PATCH TD SCH (20:15)
[2018-07-30 20:18] VITALS: BP 173/65
[2018-07-30] MEDS: ZOLPIDEM 5 MG TABLET PO PRN (21:23)
[2018-07-31] MEDS: CLONIDINE HCL 0.1 MG TABLET PO PRN (05:42)
[2018-07-31] MEDS: PANTOPRAZOLE SODIUM 40 MG TABLET.DR PO SCH (06:02)
[2018-07-31 06:10] VITALS: BP 162/65
[2018-07-31 06:46] LABS: HEMOGLOBIN 7.9 g/dL (10.9-14.3); NEUTROPHILS # (AUTO) 4.4 K/uL (1.8-8.9)
[2018-07-31 06:51] LABS: BASOPHILS % (AUTO) 0.4 % (0.0-2.0); EOSINOPHILS % (AUTO) 0.4 % (0.0-7.0); HEMATOCRIT 23.4 % (31.2-41.9); LYMPHOCYTES # (AUTO) 0.8 K/uL (20.0-40.0); LYMPHOCYTES % (AUTO) 14.2 % (20.5-51.5); MEAN CORPUSCULAR HEMOGLOBIN 33.1 uug (24.7-32.8); MEAN CORPUSCULAR HGB CONC 34 g/dL (32.3-35.6); MONOCYTES # (AUTO) 0.4 K/uL (2.0-10.0); MONOCYTES % (AUTO) 6.7 % (0.0-11.0); NEUTROPHILS % (AUTO) 78.3 % (38.5-71.5); PLATELET COUNT (AUTO) 50 K/uL (179-408); WHITE BLOOD COUNT (AUTO) 5.7 K/uL (3.8-11.8)
[2018-07-31 06:56] LABS: RED BLOOD CELL COUNT(AUTO) 2.38 MIL/uL (3.63-4.92)
[2018-07-31 07:11] LABS: BILIRUBIN,TOTAL 0.8 mg/dL (0.2-1.0); CREATININE 0.5 mg/dL (0.6-1.3); MAGNESIUM 1.4 mg/dL (1.8-2.4); PHOSPHOROUS 3.1 mg/dL (2.5-4.9)
[2018-07-31] MEDS: POTASSIUM CHLORIDE 20 MEQ TAB.PRT.SR PO SCH (08:16)
[2018-07-31] MEDS: DOCUSATE SODIUM 100 MG CAPSULE PO SCH ×2 (08:16→16:04)
[2018-07-31] MEDS: FOLIC ACID 1 MG TABLET PO SCH (08:16)
[2018-07-31] MEDS: ESCITALOPRAM OXALATE 10 MG TABLET PO SCH (08:16)
[2018-07-31] MEDS: THIAMINE HCL 100 MG TABLET PO SCH (08:16)
[2018-07-31] MEDS: CYANOCOBALAMIN 1,000 MCG TABLET PO SCH (08:16)
[2018-07-31] MEDS: CHLORHEXIDINE GLUCONATE 15 ML MOUTHWASH MM SCH ×2 (08:16→20:54)
[2018-07-31] MEDS: SODIUM BICARBONATE 650 MG TABLET PO SCH ×3 (08:17→16:03)
[2018-07-31] MEDS: HYDROCORTISONE 10 MG TABLET PO SCH (08:17)
[2018-07-31] MEDS: BUDESONIDE 3 MG PO SCH (08:17)
[2018-07-31] MEDS: Z GUARD REMEDY PASTE 57 GM TUBE TOP SCH ×2 (08:18→20:58)
[2018-07-31] MEDS: PROTEIN SUPPLEMENT (PROSTAT) 30 ML LIQUID PO SCH ×3 (08:18→16:04)
[2018-07-31] MEDS: ENSURE CLEAR 240 ML LIQUID (MIX BERRY) PO SCH ×2 (08:18→16:04)
[2018-07-31] MEDS: METOPROLOL TARTRATE 50 MG TABLET PO SCH ×2 (08:19→20:56)
[2018-07-31 09:10] LABS: BAND % (MANUAL) 1 % (0-10); LYMPHOCYTES % (MANUAL) 12 % (20-40); MONOCYTES % (MANUAL) 10 % (2-10); NEUTROPHILS % (MANUAL) 77 % (42-75)
[2018-07-31] MEDS: MAGNESIUM SULFATE/D5W 100 ML IV SCH ×2 (09:23→12:25)
[2018-07-31] MEDS ORDERED: POTASSIUM CHLORIDE 20 MEQ TAB.PRT.SR PO ONE (11:00)
[2018-07-31 11:40] VITALS: BP 134/77
[2018-07-31 16:00] VITALS: BP 140/82
[2018-07-31 19:38] VITALS: BP 140/58
[2018-07-31] MEDS: ATORVASTATIN 20 MG TABLET PO SCH (20:56)
[2018-07-31] MEDS: MIRTAZAPINE 15 MG TABLET PO SCH (20:57)
[2018-07-31] MEDS: ZOLPIDEM 5 MG TABLET PO PRN (21:06)
[2018-08-01 03:27] VITALS: BP 147/77
[2018-08-01] MEDS: PANTOPRAZOLE SODIUM 40 MG TABLET.DR PO SCH (06:27)
[2018-08-01] MEDS: ESCITALOPRAM OXALATE 10 MG TABLET PO SCH (09:19)
[2018-08-01] MEDS: POTASSIUM CHLORIDE 20 MEQ TAB.PRT.SR PO SCH (09:20)
[2018-08-01] MEDS: THIAMINE HCL 100 MG TABLET PO SCH (09:20)
[2018-08-01] MEDS: DOCUSATE SODIUM 100 MG CAPSULE PO SCH ×2 (09:20→17:25)
[2018-08-01] MEDS: CYANOCOBALAMIN 1,000 MCG TABLET PO SCH (09:21)
[2018-08-01] MEDS: FOLIC ACID 1 MG TABLET PO SCH (09:21)
[2018-08-01] MEDS: SODIUM BICARBONATE 650 MG TABLET PO SCH ×3 (09:21→17:00)
[2018-08-01] MEDS: BUDESONIDE 3 MG PO SCH (09:21)
[2018-08-01] MEDS: CHLORHEXIDINE GLUCONATE 15 ML MOUTHWASH MM SCH ×2 (09:21→20:30)
[2018-08-01] MEDS: HYDROCORTISONE 10 MG TABLET PO SCH (09:21)
[2018-08-01] MEDS: METOPROLOL TARTRATE 50 MG TABLET PO SCH ×2 (09:24→20:32)
[2018-08-01] MEDS: Z GUARD REMEDY PASTE 57 GM TUBE TOP SCH ×2 (09:49→20:31)
[2018-08-01] MEDS: ENSURE CLEAR 240 ML LIQUID (MIX BERRY) PO SCH ×2 (09:49→17:26)
[2018-08-01] MEDS: PROTEIN SUPPLEMENT (PROSTAT) 30 ML LIQUID PO SCH ×3 (09:49→17:27)
[2018-08-01] MEDS: CLONIDINE HCL 0.1 MG TABLET PO PRN (11:40)
[2018-08-01 11:41] VITALS: BP 160/86
[2018-08-01] MEDS ORDERED: CLONIDINE TTS 2 PATCH TD SCH (14:00)
[2018-08-01 14:34] VITALS: BP 151/81
[2018-08-01 16:13] VITALS: BP 155/79
[2018-08-01 20:08] VITALS: BP 156/84
[2018-08-01] MEDS: ATORVASTATIN 20 MG TABLET PO SCH (20:30)
[2018-08-01] MEDS: MIRTAZAPINE 15 MG TABLET PO SCH (20:31)
[2018-08-01] MEDS: ZOLPIDEM 5 MG TABLET PO PRN (20:37)
[2018-08-02 05:13] VITALS: BP 165/79
[2018-08-02] MEDS: CLONIDINE HCL 0.1 MG TABLET PO PRN (05:50)
[2018-08-02] MEDS: PANTOPRAZOLE SODIUM 40 MG TABLET.DR PO SCH (06:39)
[2018-08-02] MEDS: PROTEIN SUPPLEMENT (PROSTAT) 30 ML LIQUID PO SCH ×3 (08:00→16:47)
[2018-08-02] MEDS: DOCUSATE SODIUM 100 MG CAPSULE PO SCH ×2 (09:00→16:47)
[2018-08-02] MEDS ORDERED: METOPROLOL TARTRATE 25 MG TABLET PO SCH ×2 (09:00→21:00)
[2018-08-02] MEDS: ENSURE CLEAR 240 ML LIQUID (MIX BERRY) PO SCH ×2 (09:08→16:48)
[2018-08-02] MEDS: HYDROCORTISONE 10 MG TABLET PO SCH (09:09)
[2018-08-02] MEDS: CHLORHEXIDINE GLUCONATE 15 ML MOUTHWASH MM SCH ×2 (09:09→21:01)
[2018-08-02] MEDS: BUDESONIDE 3 MG PO SCH (09:10)
[2018-08-02] MEDS: FOLIC ACID 1 MG TABLET PO SCH (09:10)
[2018-08-02] MEDS: ESCITALOPRAM OXALATE 10 MG TABLET PO SCH (09:11)
[2018-08-02] MEDS: POTASSIUM CHLORIDE 20 MEQ TAB.PRT.SR PO SCH (09:11)
[2018-08-02] MEDS: CYANOCOBALAMIN 1,000 MCG TABLET PO SCH (09:12)
[2018-08-02] MEDS: THIAMINE HCL 100 MG TABLET PO SCH (09:12)
[2018-08-02] MEDS: SODIUM BICARBONATE 650 MG TABLET PO SCH ×3 (09:12→16:47)
[2018-08-02] MEDS: Z GUARD REMEDY PASTE 57 GM TUBE TOP SCH ×2 (09:13→21:02)
[2018-08-02] MEDS: METOPROLOL TARTRATE 50 MG TABLET PO SCH ×2 (09:20→21:02)
[2018-08-02 11:12] VITALS: BP 145/70
[2018-08-02] MEDS ORDERED: AMLO2.5T4 PO (11:46)
[2018-08-02] MEDS ORDERED: CLON1PAT2 TD (11:46)
[2018-08-02 15:30] VITALS: BP 139/68
[2018-08-02 19:36] VITALS: BP 140/67
[2018-08-02] MEDS: ATORVASTATIN 20 MG TABLET PO SCH (21:01)
[2018-08-02] MEDS: MIRTAZAPINE 15 MG TABLET PO SCH (21:02)
[2018-08-02] MEDS: ZOLPIDEM 5 MG TABLET PO PRN (22:04)
[2018-08-03 03:43] VITALS: BP 155/76
[2018-08-03] MEDS: PANTOPRAZOLE SODIUM 40 MG TABLET.DR PO SCH (06:14)
[2018-08-03] MEDS: ENSURE CLEAR 240 ML LIQUID (MIX BERRY) PO SCH (08:00)
[2018-08-03] MEDS: DOCUSATE SODIUM 100 MG CAPSULE PO SCH (09:00)
[2018-08-03] MEDS: THIAMINE HCL 100 MG TABLET PO SCH (09:26)
[2018-08-03] MEDS: CYANOCOBALAMIN 1,000 MCG TABLET PO SCH (09:26)
[2018-08-03 09:29] VITALS: BP 134/61
[2018-08-03] MEDS: ESCITALOPRAM OXALATE 10 MG TABLET PO SCH (09:29)
[2018-08-03] MEDS: METOPROLOL TARTRATE 50 MG TABLET PO SCH (09:29)
[2018-08-03] MEDS: FOLIC ACID 1 MG TABLET PO SCH (09:29)
[2018-08-03] MEDS: LEUCOVORIN PO SCH (09:30)
[2018-08-03] MEDS: SODIUM BICARBONATE 650 MG TABLET PO SCH ×2 (09:31→13:00)
[2018-08-03] MEDS: Z GUARD REMEDY PASTE 57 GM TUBE TOP SCH (09:32)
[2018-08-03] MEDS: POTASSIUM CHLORIDE 20 MEQ TAB.PRT.SR PO SCH (09:32)
[2018-08-03] MEDS: HYDROCORTISONE 10 MG TABLET PO SCH (09:33)
[2018-08-03] MEDS: CHLORHEXIDINE GLUCONATE 15 ML MOUTHWASH MM SCH (09:34)
[2018-08-03] MEDS: PROTEIN SUPPLEMENT (PROSTAT) 30 ML LIQUID PO SCH ×2 (09:46→12:31)
[2018-08-03] MEDS: BUDESONIDE 3 MG PO SCH (12:26)
== END 2018-08-03 13:25 | DRG 808 ==
LOC: ER 21:14 → TELE 23:31 → TELE-TD 07-22 03:35 → TELE 07-22 15:55 → MED 07-23 20:11 → MEDSURG3 07-29 11:09
PROVIDERS: ADMIT Internal Medicine; ATTEND Internal Medicine
PROC: 30233N1 Transfusion of Nonautologous Red Blood Cells into Peripheral Vein, Percutaneous Approach (ICD-10-PCS; principal; 2018-07-22)
PROC: 30233R1 Transfusion of Nonautologous Platelets into Peripheral Vein, Percutaneous Approach (ICD-10-PCS; 2018-07-23)
PROC: 0W9B3ZX Drainage of Left Pleural Cavity, Percutaneous Approach, Diagnostic (ICD-10-PCS; 2018-07-25)
PROC: 05HY33Z Insertion of Infusion Device into Upper Vein, Percutaneous Approach (ICD-10-PCS; 2018-07-27)
DX: T86.09 Other complications of bone marrow transplant (principal); D89.811 Chronic graft-versus-host disease; D61.89 Other specified aplastic anemias and other bone marrow failure syndromes; J69.0 Pneumonitis due to inhalation of food and vomit; I50.33 Acute on chronic diastolic (congestive) heart failure; E43 Unspecified severe protein-calorie malnutrition; D61.818 Other pancytopenia; J91.8 Pleural effusion in other conditions classified elsewhere; N39.0 Urinary tract infection, site not specified; I82.413 Acute embolism and thrombosis of femoral vein, bilateral; C91.01 Acute lymphoblastic leukemia, in remission; J98.11 Atelectasis; E87.6 Hypokalemia; I48.0 Paroxysmal atrial fibrillation; I11.0 Hypertensive heart disease with heart failure; E78.5 Hyperlipidemia, unspecified; R60.1 Generalized edema; E89.0 Postprocedural hypothyroidism; B00.1 Herpesviral vesicular dermatitis; K21.9 Gastro-esophageal reflux disease without esophagitis; Z68.30 Body mass index [BMI] 30.0-30.9, adult; Z22.322 Carrier or suspected carrier of Methicillin resistant Staphylococcus aureus; Z79.52 Long term (current) use of systemic steroids; Z75.1 Person awaiting admission to adequate facility elsewhere; Z92.21 Personal history of antineoplastic chemotherapy; Z92.3 Personal history of irradiation; Z90.710 Acquired absence of both cervix and uterus; Z90.12 Acquired absence of left breast and nipple; Z85.3 Personal history of malignant neoplasm of breast; Z90.5 Acquired absence of kidney; T45.1X5A Adverse effect of antineoplastic and immunosuppressive drugs, initial encounter; Y92.129 Unspecified place in nursing home as the place of occurrence of the external cause; E04.2 Nontoxic multinodular goiter; E83.42 Hypomagnesemia; F32.9 Major depressive disorder, single episode, unspecified; Z85.72 Personal history of non-Hodgkin lymphomas
CPT/HCPCS: 32555; 36415; 36569; 70030-TC; 70491; 71045; 71275; 82747; 83550; 83605; 83735; 84100; 84443; 85014; 85025; 85610; 85730; 86850; 86900; 86901; 86920; 87040; 87070; 87086; 87205; 87400; 93005; 93307; 97110; 97112; 97530; A4663; A9150; C1758; G0378; J0360; J0696; J3475; J3480; J3490; J7040; J7050; J7060; P9016-BL; P9021; P9035-BL; Q9967